=== PATIENT | male | born 1990 | race Caucasian/White ===

== ENCOUNTER 2017-03-13 02:14 | Emergency (ER) | payer BC ==
[~2017-03-13 02:14] MED LIST: BENADRYL25 M1 PO; CERTAGEN PO; CLARITIN10 MG PO; CLOTRIMAZOLE15 GM TP; CONCERTA PO; IBUPROFEN PO; NO MEDICATIONS; PEPCID AC20 M2 PO; PREDNISONE PO; TAMIFLU75 MG PO; ZOLOFT
== END 2017-03-13 02:32 | disposition home or self-care (01) ==
LOC: SED 02:14
DX: K29.70 Gastritis, unspecified, without bleeding (principal); K21.9 Gastro-esophageal reflux disease without esophagitis; F32.9 Major depressive disorder, single episode, unspecified; F41.9 Anxiety disorder, unspecified; F17.200 Nicotine dependence, unspecified, uncomplicated
CPT/HCPCS: 99283

== ENCOUNTER 2017-04-08 08:06 | Emergency (ER) | payer BC ==
--- NOTE | ~2017-04-08 | CR72 ---
[facility] A Service of [facility] RADIOLOGY TEXT RESULTS PATIENT: MARGARITA TOMLINSON LOCATION: SED : [birth year] UNIT #: [id number] AGE: [address]: Karson Dunham MD SEX: M ORDER DR: [id number] [place] [id number] E MR#: [id number] Acc #: [id number] NAME: MARGARITA TOMLINSON : 1990 SEX: M STUDY DATE/TIME: 04/08/2017 8:17 UNIT: SED ROOM: STUDY DESCRIPTION: CR Chest Single View Portable Attending Physician: Karson Dunham M.D. Ordering Physician: Karson Dunham M.D. Primary Care Physician: No Primary Care Physician MEDICAL IMAGING REPORT This report is preliminary unless electronic signature is present. EXAM Portable chest. INDICATIONS Pain this morning in the chest. DATE OF EXAM 04/08 COMPARISON 01/05/09. FINDINGS A portable view of the chest is obtained. The heart size and vascularity are normal. Lungs are clear and the bones are normal. IMPRESSION No active disease. Dictated by... Storm Tello M.D. THIS IS AN ELECTRONICALLY VERIFIED REPORT Storm Tello M.D. at 04/09/2017 7:02 AM GIANNA/rosendo TD: 04/08/2017 16:13 JOB #: [id number] [facility] A Service of [facility] RADIOLOGY TEXT RESULTS PATIENT: MARGARITA TOMLINSON LOCATION: SED : 90 UNIT #: [id number] AGE: [address]: Karson Dunham MD SEX: M ORDER DR: MEDICAL IMAGING REPORT Page 1 of 1
--- NOTE | ~2017-04-08 | EKG ---
PATIENT: MARGARITA TOMLINSON UNIT #: [id number] Ventricular Rate: 89 BPM Atrial Rate: 89 BPM P-R Interval: 134 ms QRS Duration: 92 ms Q-T Interval: 368 ms QTC Calculation(Bezet): 447 ms P Thayer: 64 degrees Calculated R Thayer: 59 degrees Calculated T Thayer: 37 degrees Diagnosis Line: Normal sinus rhythm Diagnosis Line: Normal ECG Diagnosis Line: No previous ECGs available Diagnosis Line: Confirmed by JACKSON STERN MD ([id number]) on Diagnosis Line: 04/10/2017 3:40:39 PM INTERPRETING MD: LEENA JIMENES
[2017-04-08] MEDS ORDERED: PRILOSEC PO (08:32)
[2017-04-08] MEDS ORDERED: CARAFATE PO (08:32)
[2017-04-08 08:55] LABS: BASOPHIL% 0.3 % (0-2.5); DIFF IND NO; EOSINOPHIL# 0.1 X10e3 (0-0.7); EOSINOPHIL% 0.8 % (0.0-7.0); HEMATOCRIT 47.3 % (38.0-50.0); HEMOGLOBIN 16.2 gm/dL (13.0-16.0); LYMPHOCYTE# 2.1 X10e3 (1.0-3.5); LYMPHOCYTE% 31.1 % (17.0-45.0); MEAN CELL VOLUME 87.4 FL (83-96); MEAN CORPUSCULAR HEMOGLOBIN 29.9 PG (28-34); MEAN CORPUSCULAR HGB CONC 34.3 g/dL (30-36); MEAN PLATELET VOLUME 9.5 FL (6.5-11.5); MONOCYTE# 0.5 X10e3 (0-1.0); MONOCYTE% 7.6 % (3.0-12.0); NEUTROPHIL% 60.2 % (40-75); PLATELET COUNT 180 X10e3 (140-420); RED BLOOD COUNT 5.41 X10e (3.90-5.60); RED CELL DISTRIBUTION WIDTH 12.2 % (11.0-15.5); WHITE BLOOD COUNT 6.6 X10e3 (4.0-10.5)
[2017-04-08 08:57] LABS: POC - CKMB <1.0 ng/mL (0.0-7.9); POC - TROPONIN <0.05 ng/mL (<=0.05)
[2017-04-08 09:10] LABS: BILIRUBIN, DIRECT 0.1 mg/dL (0.0-0.2); BILIRUBIN,INDIRECT 0.9 mg/dL (0.0-0.9); CALCIUM SERUM 9.6 mg/dL (8.4-10.2); GLOM FILT RATE Estimated 102.7 mL/min (>60); POTASSIUM 3.5 mmol/L (3.5-5.1); PROTEIN TOTAL SERUM 8.3 g/dL (6.0-8.3)
== END 2017-04-08 09:47 | disposition home or self-care (01) ==
LOC: SED 08:06
PROVIDERS: Emergency Medicine
DX: K21.9 Gastro-esophageal reflux disease without esophagitis (principal); F41.9 Anxiety disorder, unspecified; Z79.899 Other long term (current) drug therapy
CPT/HCPCS: 36415; 71010; 80048; 80076; 82553; 84484; 85025; 93005; 99283

== ENCOUNTER 2017-04-11 11:29 | Emergency (ER) | payer BC ==
[~2017-04-11 11:29] MED LIST changes: +CARAFATE PO; +PRILOSEC PO
== END 2017-04-11 13:45 | disposition home or self-care (01) ==
LOC: SED 11:29
DX: K21.0 Gastro-esophageal reflux disease with esophagitis (principal); F41.9 Anxiety disorder, unspecified; F17.200 Nicotine dependence, unspecified, uncomplicated; Z98.890 Other specified postprocedural states
CPT/HCPCS: 99282